=== PATIENT | female | born 1975 | race Caucasian/White ===

== ENCOUNTER → 2016-06-17 12:57 | Outpatient (CLI) | payer BC | END | disposition home or self-care (01) | LOC: D.CT 12:57 | DX: I73.9 Peripheral vascular disease, unspecified (principal) ==

== ENCOUNTER → 2017-09-24 08:32 | Outpatient (CLI) | payer OTHER | END | disposition home or self-care (01) | LOC: D.CT 08:32 | DX: R91.8 Other nonspecific abnormal finding of lung field (principal) ==

== ENCOUNTER → 2017-10-10 07:16 | Outpatient (CLI) | payer OTHER | END | disposition home or self-care (01) | LOC: D.MRI 07:16 | DX: M54.2 Cervicalgia (principal) ==

== ENCOUNTER → 2018-05-04 14:25 | Outpatient (CLI) | payer OTHER | END | disposition home or self-care (01) | LOC: D.MRI 14:25 | DX: M54.5 Low back pain (principal) ==

== ENCOUNTER → 2018-05-20 13:55 | Outpatient (CLI) | payer OTHER | END | disposition home or self-care (01) | LOC: D.MRI 13:55 | PROVIDERS: ATTEND Nurse Practitioner Family | DX: M67.431 Ganglion, right wrist (principal) ==

== ENCOUNTER 2018-06-09 08:47 | Day surgery (SDC) | payer OTHER ==
[~2018-06-09] VITALS: Ht 157.5 cm; Wt 77.1 kg
[~2018-06-09 08:47] MED LIST: ALBUTEROL AER HFA; CELEXA20 MG PO; HYDROCODON-ACE1 EAC7 PO; KLONOPIN0.5 MG PO; LOVASTATIN20 MG PO; ULTRAM50 MG PO
[2018-06-09 09:19] LABS: HEMATOCRIT 43.6 % (36.0-48.0); HEMOGLOBIN 15.2 g/dL (12-16); MCH 32.3 pg (26.0-34.0); MCHC 34.9 g/dL (31.0-37.0); MCV 92.8 fL (80.0-100.0); MEAN PLATELET VOLUME 10.7 fL (7.4-10.4); RBC 4.7 10x6/uL (4.00-5.40); RDW 11.9 % (11.5-14.5); WBC 19.6 10x3/uL (4.8-10.8)
[2018-06-09 10:05] VITALS: Ht 157.5 cm; Wt 77.1 kg
[2018-06-09 10:28] LABS: HCG URINE NEGATIVE (NEGATIVE)
[2018-06-09] MEDS ORDERED: BACTRIM 400-801 TAB PO (13:25)
[2018-06-09] MEDS ORDERED: PERCOCET 7.5/321 TAB PO (13:25)
--- NOTE | 2018-06-09 15:33 | NUR ---
PT IV REMOVED AND INSTRUCTIONS GIVEN WITH RX TO GET FILLED. TOLERATING LIQUIDS AND URINATED ONCE. NO PAIN OR NAUSEA.
--- NOTE | 2018-06-10 08:01 | OP ---
PATIENT NAME: TEGAN NAIR MEDICAL RECORD: [id number] :77 LOCATION:[facility]OPS ADMISSION DATE: SURGEON: KELIN TINEO DO DATE OF OPERATION: 06/09/2018 PROCEDURE PERFORMED: Excision of a ganglion cyst, right wrist. PREOPERATIVE DIAGNOSIS: Ganglion cyst, right wrist. POSTOPERATIVE DIAGNOSIS: Ganglion cyst, right wrist. INDICATIONS: Ms. Nair is a 43-year-old female who presented to my office with a large cyst on her wrist, mostly over the radial aspect and dorsal. She had an MRI, which demonstrated a large cyst coming off the scaphotrapezial joint radially, extending both dorsal and volar, it was quite large and she wanted it out. Said it gave her pain and restricted movements of her wrist. I informed her of the risks and benefits including infection, bleeding, damage the radial sensory nerve due to the location of the cyst, damaged tendons and need for further surgery and recurrence of the cyst due to the location and size, she was okay with that and wanted the procedure done. SURGEON: Kelin Tineo DO DESCRIPTION OF PROCEDURE: The patient was taken to the operative suite, laid in supine position, given a gram of vancomycin due to a cephalosporin allergy. A timeout was performed, everyone was agreeance with the correct side, site, patient and procedure. Right upper extremity was prepped and draped in sterile fashion. Once it was prepped and draped, timeout had been performed, and the incision began over the radial side of the scaphotrapezial joint on the wrist. Careful dissection was made down to the ganglion, it was quite large down to the stalk, it was dissected out off the radial artery as well as several nerves and the tendons. It was caught in the tendon sheath as well. This was dissected volarly as well as dorsally and removed, and then the capsule was closed with 2-0 Vicryl in a [id number] fashion and then brought into the bipolar. The tourniquet had been inflated prior to starting the procedure. After exsanguinating, the right upper extremity was up for 22 minutes to 250 mmHg. It was let down at that point in the operation and then any bleeding was coagulated with a bipolar. The skin incision was then closed with a 2-0 Vicryl in an inverted interrupted fashion and 5-0 Monocryl in an inverted interrupted fashion and Steri-Strips, Adaptic, 4 x 4's, Kerlix, and Coban was lightly wrapped on the wound and the patient was then awakened and taken to recovery in stable condition. Blood loss was minimal. COMPLICATIONS: None. TRANSINT:[id number] Voice Confirmation ID: [id number] DOCUMENT ID: [id number] OPERATIVE REPORT [id number] TEGAN NAIR,KELIN Mead DO at 0801 CC: [id number] DICTATION DATE: 06/09/18 1417 INTERNAL MEDICINE PHYSICIAN: 06/09/18 1621 [facility] 06/09/18 [facility] [address] [place] [address]
== END 2018-06-09 15:55 | disposition home or self-care (01) ==
LOC: D.OPS 08:47 → D.PAN 15:45 → D.OPS 15:55
PROVIDERS: Anesthesiology; ATTEND Orthopaedic Surgery
DX: M67.431 Ganglion, right wrist (principal); Z01.812 Encounter for preprocedural laboratory examination

== ENCOUNTER 2018-08-30 13:01 | Emergency (ER) | payer OTHER ==
[~2018-08-30] VITALS: Ht 157.5 cm; Wt 77.3 kg
[~2018-08-30 13:01] MED LIST changes: +BACTRIM 400-801 TAB PO; +PERCOCET 7.5/321 TAB PO
[2018-08-30 13:16] VITALS: Ht 157.5 cm; Wt 77.3 kg
[2018-08-30] MEDS ORDERED: MEDROL DOSE PACK4 MG PO (16:21)
[2018-08-30] MEDS ORDERED: BENADRYL25 MG PO (16:21)
[2018-08-30] MEDS ORDERED: EPIPEN 2-P0.3 MG/0.3 IM (16:25)
[2018-08-30 16:38] VITALS: BP 122/76
== END 2018-08-30 16:39 | disposition home or self-care (01) ==
LOC: D.ER 13:01
DX: T63.461A Toxic effect of venom of wasps, accidental (unintentional), initial encounter (principal); Y92.89 Other specified places as the place of occurrence of the external cause

== ENCOUNTER → 2018-11-17 08:34 | Outpatient (CLI) | payer OTHER ==
[2018-08-30 13:16] VITALS: BMI 31.1
[~2018-11-17 08:34] MED LIST changes: +ALBUTEROL SULF8.5 GM INH; +BENADRYL25 MG PO; +EPIPEN 2-P0.3 MG/0.3 IM; +ISOSORBIDE MONO30 M1 PO; +LOVASTATIN40 MG PO; +MEDROL DOSE PACK4 MG PO
== END | disposition home or self-care (01) ==
LOC: D.HCCARDIO 08:30
PROVIDERS: ATTEND Internal Medicine Cardiovascular Disease
DX: I20.9 Angina pectoris, unspecified (principal)

== ENCOUNTER 2018-12-10 06:31 | Outpatient (CLI) | payer OTHER ==
[~2018-12-10] VITALS: Ht 157.5 cm; Wt 77.3 kg
--- NOTE | ~2018-12-10 | HEMODYNAMI ---
PATIENT:TEGAN NAIR MEDICAL RECORD: [id number] : 77 LOCATION:D.CAT ADMISSION DATE: 12/10/18 Generatedon:12/10/20189:30 Patient name: TEGAN NAIR Patient #: [id number] SSN: [id number] : 1975 Date of study: 12/10/2018 Page: Of Hemodynamic Procedure Report Patient Data Patient Demographics Procedure consent was obtained First Name: TEGAN Gender: Female Last Name: JOANIE : 1975 Middle Initial: L Age: 43 year(s) Patient #: [id number] Race: SSN: [id number] Additional ID: [id number] Contact details [address]: [address] [place] [address] rd State: [place] City: [place] Zip code: [address] Past Medical History Allergies Allergen Reaction Date Comments Reported Other allergy 12/10/2018 cephalexin Admission Admission Data Admission Date: 12/10/2018 Admission Time: 6:31 Arrival Date: 12/10/2018 Arrival Time: 0:00 Admit Source: Other Insurance Payor: Private health insurance [facility] #: [id number] Height (in.): 61.81 BSA: 1.78 (m2) Height (cm.): 157 BMI: 31.24 (kg/m2) Weight (lbs.): 169.76 Weight (kg.): 77 Lab Results Lab Result Date: 12/10/2018 Lab Result Time: 0:00 Biochemistry Name Units Result Min Max BUN mg/dl 18 --(---*)-- 7 18 Creatinine mg/dl 0.8 --(-*--)-- 0.6 1.3 eGFR ml/min 82.69149 -*(----)-- 90 120 NONAFRICAN CBC Name Units Result Min Max Hematocrit % 42.7 --(*---)-- 42 54 Hemoglobin g/dl 15.3 --(-*--)-- 13.5 17.5 Procedure Procedure Types Cath Procedure Diagnostic Procedure [facility] w/Coronaries FFR/IVUS Intra-Coronary IVUS Initial Sedation Charges Moderate Sedation up to 30 minutes Procedure Description Procedure Date Procedure Date: 12/10/2018 Procedure Start Time: 8:55 Procedure End Time: 9:27 Procedure Staff Name Function Jeremiah Bettina RN Nurse Ray Otero RT Scrub Eva Quintero RT Monitor Meaghan Cesar RT Monitor Mike Das MD Performing Physician Procedure Data Cath Procedure Fluoroscopy Diagnostic fluoroscopy Total fluoroscopy Time: 4.8 time: 4.8 min min Diagnostic fluoroscopy Total fluoroscopy dose: 651 dose: 651 mGy mGy Contrast Material Contrast Material Type Amount (ml) Isovue 300 91 Entry Location Entry Primary Successful Side Size Upsize Upsize Entry Closure Succes sful Closure Location (Fr) 1 (Fr) 2 (Fr) Remarks Device Remarks Femoral Right 5 Fr 6 Fr Exoseal artery Short Estimated blood loss: 10 ml Diagnostic catheters Device Type Used For End Catheter Placement MULTIPACK JL 4.0 5Fr Procedure catheter MULTIPACK 3DRC 5Fr Procedure catheter MULTIPACK Pigtail 5 Fr Procedure catheter Procedure Complications No complications Procedure Medications Medication Administration Route Dosage Oxygen etCO2 Nasal cannula 2 l/min Lidocaine 2% added to field 20 Heparin Flush Bag added to field 2 bags (1000units/500ml NS) 0.9% NaCl I.V. 100 ml/hr Versed I.V. 2 mg Fentanyl I.V. 50 mcg Versed I.V. 1 mg Fentanyl I.V. 50 mcg Heparin Bolus I.V. 7500 units Nitroglycerin IC/IA I.C. 100 mcg Versed I.V. 1 mg Fentanyl I.V. 25 mcg Hemodynamics Rest BSA: 1.78 (m2) HGB: 15.3 (g/dl) O2 Consumption: Estimated: 168.87 (ml/min) O2 Co nsumption indexed: Estimated:94.87 (ml/min/m) Heart Rate: 54 (bpm) Pressure Samples Time Site Value (mmHg) Purpose Heart Use Rate(bpm) 9:03 LV 132/2,14 Snapshot 64 9:03 AO 126/67(93) Pullback 56 9:03 LV 138/0,14 Pullback 56 Gradients Valve Time Site 1 Site 2 Mean SEP/DFP Peak To Heart Use (mmHg) (sec/min) Peak Rate (mmHg) (bpm) Aortic 9:03 LV AO 11 17 12 56 138/0,14 126/67(93) Calculations Valve P-P Mean Valve Index Valve Source Name Gradient Area Flow (cm2) Aortic 12 11 12 11 Snapshots Pre Cath Intra NCS Post Cath Vital Signs Time Heart Resp SPO2 etCO2 NIBP (mmHg) Rhythm Pain Sedation Rate (ipm) (%) (mmHg) Status Level (bpm) 8:45:33 55 18 100 32.1 149/89(98) NSR 0 (11) 10(A) , No pain 8:50:42 56 15 99 42.6 126/74(95) NSR 0 (11) 10(A) , No pain 8:54:50 54 13 98 41.8 115/76(90) NSR 0 (11) 10(A) , No pain 8:59:02 59 13 98 41.1 122/75(101) NSR 0 (11) 9(A) , No pain 9:03:10 59 15 97 39.6 116/104(109) NSR 0 (11) 9(A) , No pain 9:07:22 58 14 98 40.4 111/66(87) NSR 0 (11) 9(A) , No pain 9:11:38 64 14 96 40.4 108/56(71) NSR 0 (11) 9(A) , No pain 9:15:50 63 14 98 40.4 108/63(78) NSR 0 (11) 9(A) , No pain 9:20:00 61 15 99 41.1 117/69(87) NSR 0 (11) 9(A) , No pain 9:25:11 65 14 100 37.3 155/88(131) NSR 0 (11) 10(A) , No pain Medications Time Medication Route Dose Verified Delivered Reason Notes Effectiveness by by 8:48:27 Oxygen etCO2 2 Mike Buffie used for Nasal l/min Thiago Dunbar RN procedure cannula 8:48:33 Lidocaine 2% added 20ml Mike Mike for local to vial Thiago Das MD anesthetic field 8:48:39 Heparin Flush added 2 Mike Mike used for Bag to bags Thiago Das MD procedure (1000units/500ml field NS) 8:48:47 0.9% NaCl I.V. 100 Mike Buffie Per physician ml/hr Thiago Dunbar RN 8:51:40 Versed I.V. 2 mg Mike Buffie for sedation Thiago Dunbar RN 8:51:45 Fentanyl I.V. 50 Mike Buffie for sedation mcg Thiago Dunbar RN 8:54:47 Versed I.V. 1 mg Mike Buffie for sedation Thiago Dunbar RN 8:54:52 Fentanyl I.V. 50 Mike Buffie for sedation mcg Thiago Dunbar RN 9:00:20 Versed I.V. 1 mg Mike Mike for sedation Thiago Das MD 9:00:25 Fentanyl I.V. 25 Mike Mike for sedation mcg Thiago Das MD 9:07:57 Heparin Bolus I.V. 7500 Mike Buffie for verifi ed units Thiago Dunbar RN anticoagulation with dr das 9:08:11 Nitroglycerin I.C. 100 Mike Mike for IC/IA mcg Thiago Das MD vasodilation Procedure Log Time Note 8:26:33 Jeremiah Dunbar RN sent for patient. Start room use. 8:26:36 Time tracking: Regular hours (M-F 7:00 - 5:00) 8:26:43 Procedure Status Elective Heart Cath (OP). 8:26:51 Plan of Care:Hemodynamics will remain stable., Cardiac rhythm will remain stable., Comfort level will be maintained., Respiratory function will remain adequate., Patient/ family verbilizes understanding of procedure., Procedure tolerated without complication., Recovers from procedure without complications.. 8:27:47 Informed consent obtained and on chart 8:30:57 Patient Weight : 169.76 lbs 8:31:02 Patient Height : 61.81 inches 8:31:07 Arrival Date: 12/10/2018 12:00:00 AM 8:31:33 Insurance Payor : Private health insurance 8:32:29 Lab Result : Creatinine 0.8 mg/dl 8:32:29 Lab Result : BUN 18 mg/dl 8:32:29 Lab Result : eGFR NONAFRICAN 82.54943 ml/min 8:32:29 Lab Result : Hematocrit 42.7 % 8:32:29 Lab Result : Hemoglobin 15.3 g/dl 8:32:46 Admit Source: Other 8:33:26 Patient allergic to Other allergycephalexin 8:35:05 Patient received from Pre/Post Procedure Room to CCL 1 Alert and oriented. Tansferred to table in Supine position. 8:35:08 Warm blankets applied, and jesus hugger turned on for patient comfort. 8:35:10 Correct patient and procedure confirmed by team. 8:35:12 ECG and BP/O2 sat monitors applied to patient. 8:43:20 Pre-procedure instructions explained to patient. 8:43:21 Pre-op teaching completed and patient verbalized understanding. 8:43:25 Family in waiting room. 8:43:28 Patient NPO since Midnight. 8:43:31 Is the patient allergic to Iodine/contrast media? No. 8:43:34 Was the patient premedicated? N/A 8:43:37 Is patient on blood thinner?No 8:43:43 Vital chart was started 8:43:48 Baseline sample Acquired. 8:43:58 Rhythm: sinus bradycardia 8:44:00 Full Disclosure recording started 8:44:16 Patient diabetic? No. 8:44:41 Patient not . Patient has had tubal. 8:44:50 Previous problem with sedation/anesthesia? No ? 8:44:53 Snore? Yes 8:44:55 Sleep apnea? No 8:44:57 Deviated septum? No 8:44:58 Opens mouth fully? Yes 8:45:00 Sticks out tongue? Yes 8:45:07 Airway obstruction? Yes asthma 8:45:11 Dentures? No ? 8:45:18 Pre procedure: right dorsailis pedis pulse 1+ Palpable, but thready & weak; easily obliterated 8:45:32 Modified Pete's test Ulnar > 7 seconds. 8:45:42 Patient pain scale 0/10 ?. 8:46:01 IV patent on arrival in left forearm with 0.9% NaCl at O. 8:46:21 Lab results completed and on chart. 8:46:25 Lab results completed and on chart. 8:46:33 Right groin area was prepped with chlora-prep and draped in sterile fashion 8:46:38 Sharps counted by scrub and verified by R.N. 8:46:40 Alarms reviewed by R. N. 8:46:49 Use device set Femoral Dx 8:46:55 ACIST Syringe (34740) opened to sterile field. 8:46:58 Bag Decanter (2001S) opened to sterile field. 8:47:17 ACIST Hand Control (40425) opened to sterile field. 8:47:18 ACIST Manifold (43845) opened to sterile field. 8:47:20 Tegaderm 4 x 4 (1626W) opened to sterile field. 8:47:31 Medline Cath Pack ([id number]) opened to sterile field. 8:47:46 DIAGNOSTIC Multipack 5Fr catheter set (MX0720) opened to sterile field. 8:47:50 SHEATH 5FR [place] (ZFR132) opened to sterile field. 8:47:53 EMERALD Guide Wire (208-047) opened to sterile field. 8:48:27 Oxygen 2 l/min etCO2 Nasal cannula was administered by Jeremiah Dunbar RN; used for procedure; Verbal order read back and verified. 8:48:33 Lidocaine 2% 20ml vial added to field was administered by Mike Das MD; for local anesthetic; Verbal order read back and verified. 8:48:39 Heparin Flush Bag (1000units/500ml NS) 2 bags added to field was administered by Mike Das MD; used for procedure; Verbal order read back and verified. 8:48:47 0.9% NaCl 100 ml/hr I.V. was administered by Jeremiah Dunbar RN; Per physician; Verbal order read back and verified. 8:50:25 Zero performed for pressure channel P1 8:50:31 Zero performed for pressure channel P1 8:51:07 --------ALL STOP TIME OUT------ 8:51:09 Final Timeout: patient, procedure, and site verified with staff and physician. All members of the team are in agreement. 8:51:12 Right groin site verified by team. 8:51:19 Fire Safety Assessment: A--An alcohol-based skin anteseptic being used preoperatively., C--Open oxygen or nitrous oxide is being used., D--An ESU, laser, or fiber-optic light is being used. 8:51:26 Physical assessment completed. ASA score P 2 - A patient with mild systemic disease as per Mike Das MD. 8:51:36 2) 60-89 Mildly reduced kidney function, and other findings (as for stage 1) point to kidney disease. 8:51:40 Versed 2 mg I.V. was administered by Jeremiah Dunbar RN; for sedation; Verbal order read back and verified. 8:51:43 Maximum allowable contrast dose (3.7 X eGFR X 0.75)230 ml. 8:51:45 Fentanyl 50 mcg I.V. was administered by Jeremiah Dunbar RN; for sedation; Verbal order read back and verified. 8:51:50 Sedation plan: IV Moderate Sedation Medication:Versed, Fentanyl 8:54:47 Versed 1 mg I.V. was administered by Jeremiah Dunbar RN; for sedation; Verbal order read back and verified. 8:54:52 Fentanyl 50 mcg I.V. was administered by Jeremiah Dunbar RN; for sedation; Verbal order read back and verified. 8:55:11 Procedure started. 8:55:20 Local anesthetic to right femoral artery with Lidocaine 2% by Mike Das MD.INITIAL ACCESS ONLY 8:57:43 A 5 Fr sheath was inserted into the Right Femoral artery 8:58:30 A MULTIPACK JL 4.0 5Fr catheter was advanced over the wire and used for Procedure. 9:00:01 LCA angiography performed. 9:00:12 Catheter exchanged over wire. 9:00:20 Versed 1 mg I.V. was administered by Mike Das MD; for sedation; Verbal order read back and verified. 9:00:25 Fentanyl 25 mcg I.V. was administered by Mike Das MD; for sedation; Verbal order read back and verified. 9:01:25 A MULTIPACK 3DRC 5Fr catheter was advanced over the wire and used for Procedure. 9:01:54 RCA angiography performed. 9:02:00 Catheter exchanged over wire. 9:02:06 ACCDominant side:Left 9:02:44 A MULTIPACK Pigtail 5 Fr catheter was advanced over the wire and used for Procedure. 9:03:40 LV gram done using ELIZALDE 9:03:46 Injector settings: Ml/sec: 10, Volume: 20, 9:03:48 LV hemodynamics recorded. 9:03:54 EF : 55 % 9:03:57 Catheter exchanged over wire. 9:05:08 SHEATH 6FR [place] (BNK821) opened to sterile field. 9:05:10 BMW 300cm Straight Pinson 2 wire ([id number]) opened to sterile field. 9:05:11 INFLATOR Merit Chanelk (EF7460) opened to sterile field. 9:05:12 TUBING High Pressure Extension Tubing (Thiago) (RN9172N) opened to sterile field. 9:05:13 GUIDE 6FR XBLAD 3.5 catheter ([id number]) opened to sterile field. 9:05:35 Sheath upsized to a 6 Fr Short. 9:06:13 6 Fr XBLAD 3.5 guide catheter was inserted over the wire 9:07:57 Heparin Bolus 7500 units I.V. was administered by Jeremiah Dunbar RN; for anticoagulation; verified with dr das Verbal order read back and verified. 9:08:11 Nitroglycerin IC/IA 100 mcg I.C. was administered by Mike Das MD; for vasodilation; Verbal order read back and verified. 9:13:06 Eldorado Pomaria Eagleye IVUS Catheter (59358K) opened to sterile field. 9:13:42 BMW 300 wire advanced. 9:14:40 Wire advanced across lesion. 9:15:46 IVUS catheter advanced over wire. 9:20:37 IVUS pass to LAD lesion performed. 9:20:39 IVUS catheter removed over wire. 9:21:07 Wire removed. 9:21:07 Guide catheter removed. 9:21:31 EXOSEAL 6Fr (EX600) opened to sterile field. 9:22:14 Sheath removed intact; hemostasis achieved with Exoseal to the Right Femoral artery. 9:22:36 Fluoroscopy time 04.80 minutes. 9:22:40 Procedure ended.(Physican Out) 9:22:52 Fluoroscopy dose: 651 mGy 9:22:52 Flurop Dose total: 651 9:23:07 Dose Area Product 18956 mGy/cm. 9:23:16 Contrast amount:Isovue 300 91ml. 9:23:19 Maximum allowable dose exceeded? No. 9:23:21 Sharps counted by scrub and verified by R.N. 9:23:42 Post-op/insertion site Right Femoral artery dressed using a 4 x 4 and Tegaderm. 9:23:55 Post-procedure physical assessment completed. ASA score P 2 - A patient with mild systemic disease as per Mike Das MD. 9:24:02 Post procedure rhythm: sinus rhythm 9:24:08 Estimated blood loss: 10 ml 9:24:12 Post procedure instruction explained to patient.Patient verbalizes understanding. 9:24:13 Patient needs reinforcement of post procedure teaching. 9:25:57 Procedure type changed to Cath procedure, Diagnostic procedure, LHC, LHC w/Coronaries, FFR/IVUS, Intra-Coronary IVUS Initial, Sedation Charges, Moderate Sedation up to 30 minutes 9:26:52 Procedure and supply charges have been captured, reviewed, submitted and are correct. 9:27:03 Procedure Complication : No complications 9:27:08 Vital chart was stopped 9:27:19 See physician's report for complete and final results. 9:27:22 Report given to Pre/Post Procedure Room. 9:27:26 Patient transfered to Pre/Post Procedure Room with Stretcher. 9:27:30 Procedure ended. 9:27:30 Full Disclosure recording stopped 9:27:33 End room use (Document Last) 9:27:33 End room use (Document Last) 9:27:33 End room use (Document Last) Device Usage Item Name Manufacture Quantity Catalog Hospital Part Current Minimal L ot# / Number Charge Number Stock Stock Serial# Code ACIST Acist 1 10582 952271 115154 003013 20 Syringe Medical (88012) Systems Inc Bag Microtek 1 2001S 560871 75642 456798 5 Decanter Medical Inc. () ACIST Hand Acist 1 90867 012645 739475 024169 5 Control Medical (10691) Systems Inc ACIST Acist 1 79425 557257 409086 546311 5 Manifold Medical (24180) Systems Inc Tegaderm 4 3M 1 1626W 126048 428238 299586 5 x 4 (1626W) Medline Medline 1 [id number] 108659 50532 930671 5 Cath Pack ([id number]) DIAGNOSTIC Cardinal 1 TL1719 279132 07148 353935 30 Multipack Health 5Fr catheter set (PL5404) SHEATH 5FR Terumo 1 RZP568 340520 887698 819041 5 [place] (SDC489) EMERALD Cardinal 1 502-314 673795 337381 387894 5 Guide Wire Health (502-618) MULTIPACK Cardinal 1 388522 5 JL 4.0 5Fr Health catheter MULTIPACK Cardinal 1 042797 5 3DRC 5Fr Health catheter MULTIPACK Cardinal 1 025234 5 Pigtail 5 Health Fr catheter SHEATH 6FR Terumo 1 BKW981 628425 423774 974997 40 [place] (SDP796) BMW 300cm Santiago 1 6507988 218411 603313 270662 5 Straight Vascular Pinson 2 wire (9932332) INFLATOR Merit 1 AF1276 613457 127007 651978 15 Merit Medical BasixCompak (KQ9099) TUBING High Merit 1 [id number] 231473 85855 279293 10 Pressure Medical Extension Tubing (Das) (RX0864A) GUIDE 6FR Cardinal 1 [id number] 991339 739096 646234 10 XBLAD 3.5 Health catheter (02564992) Eldorado Eldorado 1 80561Q 563972 533390 206314 8 Pomaria Eagleye IVUS Catheter (99235E) EXOSEAL 6Fr Cardinal 1 EX600 663890 606006 651225 10 (EX600) Health Signature Audit [place] Stage Time Signature Unsigned Intra-Procedure 12/10/2018 Eva Quintero 9:28:55 AM RT(R) Intra-Procedure 12/10/2018 Jeremiah Dunbar RN 9:29:19 AM Intra-Procedure 12/10/2018 Mike Das MD 9:30:14 AM [facility] [address] [place] [address]
[~2018-12-10 06:31] MED LIST changes: -ALBUTEROL SULF8.5 GM INH; -ISOSORBIDE MONO30 M1 PO; -LOVASTATIN40 MG PO
[2018-12-10] MEDS ORDERED: LOVASTATIN40 MG PO (07:06)
[2018-12-10] MEDS ORDERED: ALBUTEROL SULF8.5 GM INH (07:07)
[2018-12-10 07:14] VITALS: BP 138/82; Ht 157.5 cm; Wt 77.3 kg
[2018-12-10 07:30] LABS: BASOPHILS 0.1 % (0-2); HEMATOCRIT 42.7 % (36.0-48.0); HEMOGLOBIN 15.3 g/dL (12-16); IMMATURE GRANULOCYTES 0.4 % (0-5); LYMPHOCYTES 37.5 % (15-50); MCH 33.4 pg (26.0-34.0); MCHC 35.8 g/dL (31.0-37.0); MCV 93.2 fL (80.0-100.0); MEAN PLATELET VOLUME 10.8 fL (7.4-10.4); MONOCYTES 6.8 % (2-11); NEUTROPHILS 54.2 % (40-80); PLATELET COUNT 217 10x3/uL (130-400); RBC 4.58 10x6/uL (4.00-5.40); RDW 11.9 % (11.5-14.5); WBC 10.1 10x3/uL (4.8-10.8)
[2018-12-10 07:35] LABS: CALC OSMOLALITY 283 mosm/kg (275-300); CARBON DIOXIDE 27.9 mmol/L (21.0-32.0); CHLORIDE - SERUM 107 mmol/L (98-107); CREATININE - SERUM 0.8 mg/dL (0.6-1.3); GLUCOSE 86 mg/dL (74-106); POTASSIUM - SERUM 3.8 mmol/L (3.5-5.1); SODIUM 142 mmol/L (136-145); UREA NITROGEN 18 mg/dL (7-18); eGFR NON AFRICAN AMERICAN 83 mL/min (90-120)
[2018-12-10 07:43] LABS: LDL-HDL RATIO 2.8 ratio (1.5-3.5)
--- NOTE | 2018-12-10 09:45 | NUR ---
PT ARRIVED BY STRETCHER. PLACED ON MONITOR. ASSESSMENT COMPLETED. VSS. RIGHT GROIN DRESSING C/D/I. NO S/S OF HEMATOMA NOTED. CALL LIGHT WITHIN REACH. FAMILY AT BEDSIDE. JONEL ROUNDED AND SPOKE WITH PT'S FAMILY.
[2018-12-10] MEDS ORDERED: ISOSORBIDE MONO30 M1 PO (09:47)
--- NOTE | 2018-12-10 10:00 | NUR ---
PT RESTING COMFORTABLY. VSS. RIGHT GROIN DRESSING C/D/I. NO S/S OF HEMATOMA NOTED. RIGHT PEDAL PULSE PALPABLE.
--- NOTE | 2018-12-10 10:30 | NUR ---
RIGHT GROIN DRESSING C/D/I. NO S/S OF HEMATOMA NOTED. CALL LIGHT WITHIN REACH. VSS. PEDAL PULSES PRESENT IN RIGHT FOOT. NO NEEDS AT THIS TIME. TOLERATING SIPS OF WATER. DENIES NAUSEA/PAIN.
--- NOTE | 2018-12-10 11:00 | NUR ---
RIGHT GROIN DRESSING C/D/I. NO S/S OF HEMATOMA NOTED. CALL LIGHT WITHIN REACH. VSS. NO NEEDS AT THIS TIME.
--- NOTE | 2018-12-10 11:45 | NUR ---
RIGHT GROIN DRESSING C/D/I. NO S/S OF HEMATOMA NOTED. CALL LIGHT WITHIN REACH.
--- NOTE | 2018-12-10 12:30 | NUR ---
PT'S HEAD OF BED INC TO 30 DEGREES. TOLERATED WELL. VSS. CALL LIGHT WITHIN REACH. SET UP WITH SANDWICH TRAY AND DRINK. DENIES NAUSEA. RIGHT GROIN DRESSING C/D/I.NO S/S OF HEMATOMA NOTED.
--- NOTE | 2018-12-10 12:56 | NUR ---
RIGHT GROIN DRESSING C/D/I. NO S/S OF HEMATOMA NOTED. CALL LIGHT WITHIN REACH. FAMILY AT BEDSIDE. PIV D/C'D WITH CATH TIP INTACT. TOLERATED WELL. PT INSTRUCTED TO GET UP AND DRESSED. FAMILY AT BEDSIDE TO ASSIST.
--- NOTE | 2018-12-10 13:10 | NUR ---
DISCUSSED DISCHARGE INSTRUCTIONS. PT VOICED UNDERSTANDING. RIGHT GROIN DRESSING C/D/I. NO S/S OF HEMATOMA NOTED.
--- NOTE | 2018-12-10 13:20 | NUR ---
PT TO RESTROOM. VOIDED WITHOUT DIFFICULTY. TAKEN OUT TO VEHICLE BY WHEELCHAIR. NO S/S OF DISTRESS NOTED. ALL BELONGINGS AND PAPERWORK IN HAND.
== END 2018-12-10 13:20 | disposition home or self-care (01) ==
LOC: D.CATH 06:31 → D.CLR 06:40 → D.CATH 08:30
PROVIDERS: ATTEND Internal Medicine Cardiovascular Disease
DX: R94.30 Abnormal result of cardiovascular function study, unspecified (principal); R07.9 Chest pain, unspecified; E78.5 Hyperlipidemia, unspecified; I25.10 Atherosclerotic heart disease of native coronary artery without angina pectoris

== ENCOUNTER → 2019-03-30 16:57 | Outpatient (CLI) | payer OTHER ==
[2018-12-10 07:14] VITALS: BMI 31.1
[~2019-03-30 16:57] MED LIST changes: +ALBUTEROL SULF8.5 GM INH; +ISOSORBIDE MONO30 M1 PO; +LOVASTATIN40 MG PO
[2019-03-30 17:35] LABS: CHOL - HDL RATIO 3.4 ratio (2.3-4.1)
== END | disposition home or self-care (01) ==
LOC: D.LABREF 16:57
PROVIDERS: ATTEND Internal Medicine Cardiovascular Disease
DX: E78.5 Hyperlipidemia, unspecified (principal)